=== PATIENT | male | born 1950 | race Caucasian/White ===

== ENCOUNTER 2016-05-20 17:05 | Observation (INO) | payer OTHER ==
[~2016-05-20] VITALS: Ht 188 cm; Wt 105.2 kg
[~2016-05-20 17:05] MED LIST: ACLI400A2 IH; ALBU8.5H2 INHALATION; ASPI-973 PO; ATOR40TA69 PO; Acetaminophen PO; CARV12.52 PO; CLOP75TA3 PO; DOCU-41 PO; ENOX40DI8 SUBQ; FRSM80T PO; Fentanyl TOPICAL; GABA-502 PO; LISI-571 PO; MAGN800O PO; OXYC5TAB72 PO; POLY17PO6 PO; POTA20TA16 PO; SPIR25TA3 PO; SYMINH INHALATION
[2016-05-20 18:29] VITALS: PULSE 92
--- NOTE | 2016-05-20 18:30 | NUR ---
transfer pt transfer from [facility] for chest pain pain is resolved, pt denies pain/distress vitals being taken, doc in room
[2016-05-20] MEDS ORDERED: Ondansetron 2 mg/mL 2 mL Inj IVPUSH PRN (18:35)
[2016-05-20] MEDS ORDERED: Polyethylene Glycol (PEG) 17 Gm Powder PO PRN (18:35)
[2016-05-20] MEDS: Sodium Chloride LOK Flush 10 mL Syringe IVFLUSH SCH ×2 (18:35→23:26)
[2016-05-20] MEDS ORDERED: Alum-Mag Hydrox-Simeth 30 mL Suspension PO PRN (18:35)
[2016-05-20 18:37] VITALS: BP 129/76; PULSE 40; RESP 16; O2SAT 96
--- NOTE | 2016-05-20 19:00 | PCM.HPMED ---
Subjective Date of Service May 20, 2016 Primary Provider: Admitting Physician: Siddharth Correia MD Primary Care Physician: Jamilah Allen MD Attending Physician: Siddharth Correia MD Admit Status: Direct Admit, Admit to [facility] Team, [facility] Telemetry Chief Complaint: Chest pain, resolved. History of Present Illness: Patient had sternal chest pain this AM for about an hour. Some associated diaphoresis. No nausea or acute dyspnea. Pain not pleuritic. He has known CAD with an MA 2 years ago, PCI with a OM stent. He has a known chronic systolic failure Last EF 17% He denies recent CP on exertion but recent increase in dyspnea on exertion. He was also very hypertensive this AM. He did have some right sided pleuritic CP. No increase in orthopnea, or leg edema. Review of Systems: All reviewed and otherwise unremarkable except as noted in H and P. Allergies Coded Allergies: No Known Allergies (Verified Allergy, Unknown, 06/04/15) Home Medications Unknown to patient, med rec pending. PMH 1. Severe chronic systolic HF, mixed cardiomyopathy with EF 17% 2. CAD with MA and OM stent. 3. NSVT with ICD + pacer 4. Obesity 5. HTN Surgical History ICD PCI with OM stent Left shoulder repair Hip fracture and ORIF Family History Strong FHx CHF Social History Hx Alcohol Use: Yes Hx Substance Use: No (denies) Smoking Status: Former Smoker Living Arrangement: with Family Exam Vital Signs Vital Sign - Last Date Time Temp Pulse Resp B/P Pulse Ox O2 Delivery O2 Flow Rate FiO2 05/20/16 18:37 36.7 40 16 129/76 96 Room Air Exam Alert and oriented x 3. No distress, fluent speech, normal affect Normal skull, nose and ears Normal neck, thyroid, no adenopathy Lungs clear, some exp wheezes Heart slow without murmur Abdomen distended, NT 1+ edema. Venous stasis derm Normal muscles and joints cranial nerves intact Anicteric sclera , conjugate gaze. Lab and Diagnostics Labs Pending 12-lead ECG Pending Assessment & Plan 1. Bradycardia, POA. D/W cardiology, ECG, [facility] 2nd floor, pt has a ICD + PAcer tested normal Feb 2016. 2. Chest pain, resolved. POA. Hold beta blockers, serial troponins, cards consult in AM. Possible stress test ([place]) 3. Obesity, POA 4. Chronic systolic HF, compensated. POA. Follow and resume meds when clinically able. Get med rec as well. Full code, discussed at time of admit Obs status, 1 night stay. May change clinically pending pacer check, tele and troponins. Pain Evaluation: Adequate Pain Control Resuscitation Status: CPR: Attempt Resuscitation Time spent 45 min Siddharth Correia MD May 20, 2016 19:00
[2016-05-20 20:00] VITALS: PULSE 102
[2016-05-20 20:19] VITALS: BP 108/52; PULSE 88; O2SAT 97
[2016-05-20 20:21] LABS: TROPONIN T < 0.010 ug/L (0.0-0.011)
--- NOTE | 2016-05-20 20:57 | NUR ---
Admission Pt up and about in the room independently. Ate 100% of his dinner. Denies chest pain. Oriented to room/call light Aware to report to nurse if any chest pain reoccurs. Treated with tylenol for a MCDONALD. Reports his MCDONALD is improved. Telemetry is trigeminal PVCs Sinus. Will cont to monitor
[2016-05-20] MEDS ORDERED: BECL8.7A5 INH (21:16)
[2016-05-20] MEDS ORDERED: FRSM80T PO (21:16)
[2016-05-21] VITALS (7 sets, daily range): BP systolic 118–147; BP diastolic 66–90; PULSE 69–90; RESP 16–18; O2SAT 96–98
[2016-05-21 06:19] LABS: BASOPHILS % (AUTO) 0.3 % (0-3); EOSINOPHILS % (AUTO) 1.8 % (0-5); MONOCYTES % (AUTO) 12.5 % (4-12); Mean Corpuscular Hemoglobin 31.8 pg (27.0-35.0); Mean Corpuscular Volume 97.4 fL (81-100); NEUTROPHILS % (AUTO) 70.5 % (40-74); Platelet Count 203 bil/L (150-400)
[2016-05-21 06:54] LABS: TROPONIN T < 0.010 ug/L (0.0-0.011)
[2016-05-21] MEDS: Sodium Chloride LOK Flush 10 mL Syringe IVFLUSH SCH ×2 (08:03→16:34)
--- NOTE | 2016-05-21 08:55 | PCM.PNMED ---
Subjective Date of Service May 21, 2016 Subjective Uneventful night.Patient had about 8 episodes of left sided chest pain yesterday lasting about a minute over half an hour now gone. Spoke with Dr. Jacob by phone about plan below. Med rec completed. Exam Vital Signs Vital Sign - Last Date Time Temp Pulse Resp B/P Pulse Ox O2 Delivery O2 Flow Rate FiO2 05/21/16 05:30 36.6 86 16 118/66 97 Room Air Intake and Output 05/20/16 05/20/16 05/21/16 Cumulative From/Thru 15:00 23:00 07:00 05/20/16 18:37 - 05/21/16 05:55 Intake Total 450 ml 450 ml Output Total 800 ml 800 ml Balance -350 ml -350 ml Intake Oral 450 ml 450 ml Output Urine Total 800 ml 800 ml # Bowel Movements 0 0 Exam Eyes; eliza, eom intact ENMT; well hydrated, no lesions CV; no murmur or gallop, regular Resp; clear to AP GI; soft non acute benign Skin; dry no rash Neuro; 2-12 intact no gross motor or sensory defect Lab and Diagnostics Result Diagram: 05/21/1645 05/20/161934 12-lead ECG Pending Assessment & Plan 1. Acute Bradycardia, POA, resolved -spoke with Dr. Jacob, he will set up pacemaker interogation -monitor on tele 2. Acute Chest pain, present on admission resolved. -trend troponins -lexiscan in AM, hold coreg -continue plavix, lipitor, asa 81, -repeat echo 3. Chronic systolic HF, compensated. POA. -ef 17% > year ago, repeat echo -creatinine up a bit, hold lasix and lisinopril today, check bmp in am 4. Acute Kidney injury, POA, active -patient may be a bit overdiuresed -hold lasix and augusto today and repeat BMP in AM 5. Chronic hypertension, POA, stable -monitor -continue coreg Disposition -pcp is Dr. Ferrer -cardiology rn is Dr. Nguyen Full code, discussed at time of admit Obs status, 1 night stay. May change clinically pending pacer check, tele and troponins. Resuscitation Status: CPR: Attempt Resuscitation Gideon Crenshaw MD May 21, 2016 08:55
[2016-05-21] MEDS ORDERED: Albuterol 2.5 mg/3 mL Inhalation Solution NEB PRN (09:06)
[2016-05-21 09:29] LABS: Magnesium 2.3 mg/dL (1.6-2.6)
--- NOTE | 2016-05-21 09:51 | NUR ---
interrogation this RN called [employer] @ [phone]-[phone] to get a rep out to do the interrogation. they are going to call when the have someone to do the service in our area. Addendum: 05/21/16 at 1019 by HENRI WHEELER RN Ronald will come to the hospital around [phone] today. phone number is [phone]
--- NOTE | 2016-05-21 11:42 | NUR ---
Ronald is here doing the procedure. He warns that pt's HR will be "a little messy" while he is adjusting the settings. neurology tech notified
--- NOTE | 2016-05-21 14:14 | NUR ---
Social Work: Screening Data: Pt is a 66 y/o male admitted for chest pain. Pt's PCP is Dr Allen, pt's insurance is [employer]. EMR reviewed, readmit score not listed. No d/c planning needs anticipated at this time. BORE MINER OPERATOR will continue to follow if needs arise. Assessment: Pt who is independent at baseline. Plan: Pt will d/c home via POV when medically stable. No d/c planning needs anticipated at this time. BORE MINER OPERATOR will continue to follow if needs arise. RASHARD Peters
[2016-05-21] MEDS: Fluticasone 100 mCg Inhaler INHALATION SCH (20:39)
[2016-05-22 00:44] VITALS: PULSE 83
[2016-05-22] MEDS: Sodium Chloride LOK Flush 10 mL Syringe IVFLUSH SCH ×2 (01:02→11:30)
[2016-05-22 01:24] VITALS: BP 137/71; PULSE 82; RESP 18; O2SAT 96
[2016-05-22 05:22] VITALS: BP 126/74; PULSE 78; RESP 18; O2SAT 96
--- NOTE | 2016-05-22 05:30 | NUR ---
Uneventful Night pt has been able to sleep during the shift with minimal interruptions. has denied pain. VSS, afebrile, on RA. IV is SL, patent when flushed. Reported PRN Tylenol has been effective for pain control and PRN Ambien has been effective for sleep. pt has been using call light appropriately to make needs known, placed within reach.
[2016-05-22 07:30] VITALS: PULSE 88
--- NOTE | 2016-05-22 07:36 | NUR ---
Off Unit: Patient transported to [facility] via wheelchair accompanied by transporter. broadband technician notified. No apparent distress at time of transport. Denies pain.
[2016-05-22 07:58] LABS: TROPONIN T < 0.010 ug/L (0.0-0.011)
[2016-05-22 10:39] VITALS: BP 117/83; PULSE 78; RESP 18; O2SAT 97
[2016-05-22] MEDS: Fluticasone 100 mCg Inhaler INHALATION SCH (11:29)
--- NOTE | 2016-05-22 11:46 | DRSVH ---
[facility] [address] [place] [address] Echocardiogram Report Name: HANANE BELL RStudy Date: 05/21/2016 Height: 74 in Hospital Exam Location: [facility] Weight: 232 lb Gender: Male BSA: 2.3 m2 : 1950 Age: 66 yrs BP: 118/66 mmHg Reason For Study: SOB, HYPERTENSION, CONGESTIVE HEART FAILURE Ordering Physician: HOSPITALIST ITZELerformed By: Guillermo Crane Referring Physician: Gideon SWAIN Interpretation Summary The left ventricle is moderate-severely dilated. The ejection fraction is estimated to be 25-30%. There is moderate to severe global hypokinesis of the left ventricle. There is a moderate dyssynchronous contraction pattern due to the paced rhythm. There is basal inferior wall akinesis. Compared with the prior echo from 01/26/2015, there is now a RV pacer lead seen and LV function is slightly improved. There is no significant valvular heart disease. No other echocardiographic abnormalities seen. Procedure: A two-dimensional transthoracic echocardiogram with color flow and Doppler was performed. The study quality was technically adequate. Comparison is made with the echocardiogram of 01/26/15. The patient was in begeminy for a good part of the exam. The heart rate ranged between 76-90 bpm during the study. Left Ventricle: The left ventricle is moderate-severely dilated. There is normal left ventricular wall thickness. The ejection fraction is estimated to be 25-30%. Compared with the prior echo from 01/26/2015, there is now a RV pacer lead seen and LV function is slightly improved. There is moderate to severe global hypokinesis of the left ventricle. There is a moderate dyssynchronous contraction pattern due to the paced rhythm. There is basal inferior wall akinesis. Right Ventricle: The right ventricle is mildly dilated. There is a pacemaker lead in the right ventricle. Right ventricular systolic function is mildly reduced. Atria: There is moderate biatrial enlargement. Mitral Valve: The mitral valve leaflets appear borderline thickened, but open well. There is trace mitral regurgitation. Aortic Valve: The aortic valve is grossly normal. There is mild aortic regurgitation. Tricuspid Valve: The tricuspid valve is not well visualized, but is grossly normal. Pulmonary artery pressures cannot be estimated because of the lack of a measurable TR jet velocity. Pulmonic Valve: The pulmonic valve leaflets are thin and pliable; valve motion is normal. There is mild pulmonic regurgitation. Great Vessels: The aortic root is normal size. The ascending aorta is mild- moderately enlarged. The pulmonary artery is normal size. The IVC is of normal diameter and collapses greater than 50% with a sniff. This suggests a low right atrial pressure of 3 mm Hg. Pericardium/ Pleura There is no pericardial effusion. There is no pleural effusion. MMode/2D Measurements & Calculations LVIDd: 6.8 cm RA long axis: 5.7 cm LVOT diam: 2.4 cm LVIDs: 5.7 cm LA A2 area: 19.5 cm AoV Opening FS: 16.6 % LA A4 area: 22.3 cm RA area: 25.1 cm EPSS: 2.4 cm LA length (vol) RA vol: 93.9 ml Ao root diam IVSd: 0.90 cm RA : 40.6 ml/m2 LVPWd: 1.0 cm LA vol: 67.1 ml asc Aorta Diam LA vol index Ao Arch Diam (Prox Trans): 2.6 cm IVC diam: 1.9 cm EDV(MOD-sp2) LV burnham. diameter/BSA LV sys. diameter/BSA RVD1 (basal) : 173.5 ml (cm/m^2): 2.9 (cm/m^2): 2.4 : 5.0 cm RVD2 (mid) TAPSE: 2.3 cm : 3.9 cm Doppler Measurements & Calculations Ao V2 max PA V2 max: 97.2 cm/sec Ao V2 mean LV V1 max PG : 142.5 cm/sec PA mean P.9 mmHg : 113.6 cm/sec Ao max PG Ao V2 VTI: 26.5 cmLV V1 VTI : 8.3 mmHg : 11.5 cm Ao mean PG LAQUITA(V,D): 2.0 cm2 LVOT Max Brett : 64.4 cm/sec LAQUITA(I,D): 2.0 cm sev ratio PA V2 mean LAQUITA indexed to BSA : 62.5 cm/sec (cm^2/m^2): 0.84 Reading Physician:05:22 PM
--- NOTE | 2016-05-22 12:32 | NUR ---
Telemetry: Notified by monitoring manager that patient had 5 beats V-Tach, bigeminal PVCs prior to tach and currently trigeminal PVC HR 108. Patient sitting in chair, denies feeling of palpitation, dizziness, lightheadedness. text paged.
--- NOTE | 2016-05-22 13:26 | NUR ---
Social Work: Discharge Data: Pt is on day 2 of hospitalization. EMR reviewed. D/C orders are in. No d/c planning needs identified at this time. MARINE STEAMFITTER will continue to follow if needs arise. Assessment: Pt who is independent at baseline. Plan: Pt will d/c home via POV today. No d/c planning needs identified at this time. MARINE STEAMFITTER will continue to follow if needs arise. RASHARD Peters
--- NOTE | 2016-05-22 13:27 | PCM.DIMED ---
Discharge Instructions Date of Service May 22, 2016 Dates of Hospitalization May 20, 2016 at 18:23 Discharge Diagnosis Discharge Diagnosis 1. Acute Bradycardia, poa, resolved 2. Acute Chest pain, present on admission resolved. 3. Chronic systolic HF, compensated. poa. 4. Acute Kidney injury, poa, resolved 5. Chronic hypertension, poa, stable Diet Low fat, Low Sodium, Heart Healthy Activity Limited until seen by PCP Call your provider Shortness of breath, Chest pain Patient Instructions Follow-up plan I would like you to follow up with your cardiologuist as soon as possible to review you hospital stay and make further recommendation Gideon Crenshaw MD May 22, 2016 13:27
--- NOTE | 2016-05-22 13:35 | PCM.DC.MED ---
Discharge Summary Date of Service May 22, 2016 Dates of Hospitalization Date of Hospital Admission May 20, 2016 at 18:23 Date of Discharge: May 22, 2016 Providers: Admitting Physician: Siddharth Correia MD Primary Care Physician: Jamilah Allen MD Attending Physician: Siddharth Correia MD Diagnosis at Time of Discharge Diagnosis at Time of Discharge 1. Acute Bradycardia, poa, resolved 2. Acute Chest pain, present on admission resolved. 3. Chronic systolic HF, compensated. poa. 4. Acute Kidney injury, poa, resolved 5. Chronic hypertension, poa, stable Procedures ECG 12 Lead Pending Cardiac Echo Impression Echocardiogram Report Name: HANANE BELL RStudy Date: 0 05/21/2016 Height: 74 in Hospital Exam Location: [facility] Weight: 232 lb Gender: Male BSA: 2.3 m2 : 1950 Age: 66 yrs BP: 118/66 mmHg Reason For Study: SOB, HYPERTENSION, CONGESTIVE HEART FAILURE Ordering Physician: HOSPITALIST SVHPerformed By: Guillermo Crane Referring Physician: Gideon SWAIN Interpretation Summary The left ventricle is moderate-severely dilated. The ejection fraction is estimated to be 25-30%. There is moderate to severe global hypokinesis of the left ventricle. There is a moderate dyssynchronous contraction pattern due to the paced rhythm. There is basal inferior wall akinesis. Compared with the prior echo from 01/26/2015, there is now a RV pacer lead seen and LV function is slightly improved. There is no significant valvular heart disease. No other echocardiographic abnormalities seen. Brief History Patient had sternal chest pain this AM for about an hour. Some associated diaphoresis. No nausea or acute dyspnea. Pain not pleuritic. He has known CAD with an VA 2 years ago, PCI with a OM stent. He has a known chronic systolic failure Last EF 17% He denies recent CP on exertion but recent increase in dyspnea on exertion. He was also very hypertensive this AM. He did have some right sided pleuritic CP. No increase in orthopnea, or leg edema. Hospital Course 1. Acute Bradycardia, POA, resolved -reported bradycardia from [facility], not noted here and not noted on pacemaker interrogation 2. Acute Chest pain, present on admission resolved. -trended troponins all negative -lexiscan low risk, increased fixed perfusion defects, no reversible component, -continue plavix, lipitor, asa 81, coreg -discharge home today, no futher CP in hospital, followup with moulder operator SHERIF -discussed with Cecil Dowd 3. Chronic systolic HF, compensated. POA. -ef 17% > year ago, repeat echo now with ef 25-30% -continue same lasix and lisinopril 4. Acute Kidney injury, POA, active -patient may be a bit overdiuresed -creatinine now normal, 0.85 5. Chronic hypertension, POA, stable -monitor -continue coreg, lasix Disposition -pcp is Dr. Ferrer -moulder operator is Dr. Nguyen Full code, discussed at time of admit Obs status, 1 night stay. May change clinically pending pacer check, tele and troponins. Exam Vital Signs (Last) Date Time Temp Pulse Resp B/P Pulse Ox O2 Delivery O2 Flow Rate FiO2 05/22/16 10:39 37.1 78 18 117/83 97 Room Air Exam Eyes; eliza, eom intact ENMT; well hydrated, no lesions CV; no murmur or gallop, regular, minimal edema Resp; clear to AP GI; soft non acute benign Skin; dry no rash Neuro; 2-12 intact no gross motor or sensory defect Test 05/20/16 19:35 05/21/16 05:45 05/22/16 05:02 Total Bilirubin 0.5mg/dL (0.0-1.2) Aspartate Amino Transf (AST/SGOT) 20U/L (0-50) Alanine Aminotransferase (ALT/SGPT) 29U/L (0-44) Alkaline Phosphatase 81U/L (25-160) Total Protein 8.0g/dL (6.4-8.4) Albumin 4.6g/dL (3.4-5.0) Hold Yang Top Tube Received (Received) White Blood Count 10.9th/mm3 (3.8-10.1) Red Blood Count 4.18mil/mm3 (4.40-5.80) Hemoglobin 13.3g/dL (13.8-17.2) Hematocrit 40.7% (41.0-50.0) Mean Corpuscular Volume 97.4fL (81-100) Mean Corpuscular Hemoglobin 31.8pg (27.0-35.0) Mean Corpuscular Hemoglobin Concent 32.7% (32.0-37.0) Red Cell Distribution Width 12.8% (12.3-15.4) Platelet Count 203bil/L (150-400) Neutrophils (%) (Auto) 70.5% (40-74) Lymphocytes (%) (Auto) 14.7% (14-46) Monocytes (%) (Auto) 12.5% (4-12) Eosinophils (%) (Auto) 1.8% (0-5) Basophils (%) (Auto) 0.3% (0-3) Magnesium Level 2.3mg/dL (1.6-2.6) Triglycerides Level 132mg/dL (0-149) Cholesterol Level 131mg/dL (100-199) LDL Cholesterol, Calculated 60.600mg/dL (0-99) VLDL Cholesterol 26.400mg/dL HDL Cholesterol 44mg/dL (>39) Cholesterol/HDL Ratio 2.98 (0.0-4.4) Thyroid Stimulating Hormone (TSH) 0.439uIU/mL (0.450-4.500) Sodium Level 140mEq/L (134-144) Potassium Level 4.8mEq/L (3.5-5.2) Chloride Level 103mEq/L (97-108) Carbon Dioxide Level 20mmol/L (18-29) Blood Urea Nitrogen 15mg/dL (8-27) Creatinine 0.85mg/dL (0.76-1.27) Estimat Glomerular Filtration Rate 96mL/min (>59) Glucose Level 109mg/dL (60-99) Calcium Level 9.4mg/dL (8.5-10.1) Troponin T < 0.010ug/L (0.0-0.011) Discharge Medications Discharge Medications Aspirin (Aspirin) 81 Mg Tablet 81 MG PO DAILY (Reported) Atorvastatin Calcium (Atorvastatin Calcium) 40 Mg Tablet 40 MG PO DAILY ( Reported) Beclomethasone Dipropionate (Qvar) 8.7 Gm Aer.w.adap 2 PUFFS INH BID (Reported) Carvedilol (Carvedilol) 12.5 Mg Tablet 18.75 MG PO BID (Reported) Clopidogrel Bisulfate (Plavix) 75 Mg Tablet 75 MG PO DAILY (Reported) Furosemide (Furosemide) 80 Mg Tab 80 MG PO every other day (Reported) Furosemide (Furosemide) 80 Mg Tab 40 MG PO every other day (Reported) Lisinopril (Lisinopril) 5 Mg Tablet 5 MG PO DAILY (Reported) Potassium Chloride (Potassium Chloride) 20 Meq Tab.er.prt 20 MEQ PO DAILY ( Reported) TAKE WITH FOOD Spironolactone (Spironolactone) 25 Mg Tablet 12.5 MG PO DAILY (Reported) As needed Albuterol HFA (Proair HFA) 8.5 Gm Hfa.aer.ad 2 PUFFS INHALATION Q4H PRN PRN For Shortness of Breath (Reported) Followup Plan Follow-up plan I would like you to follow up with your cardiologuist as soon as possible to review you hospital stay and make further recommendation Discharge Diet: Low fat, Low Sodium, Heart Healthy Discharge Activity: Limited until seen by PCP Time spent 40 minutes time spent discharging patient home, current time is 1:36 pm copies to: Gary Ferrer MD; Mara Nguyen MD, D Geoffrey MD May 22, 2016 13:35
--- NOTE | 2016-05-22 15:36 | NUR ---
Discharge: Patient discharged to home @ approx 1530. IV d/c'd intact, telemetry removed, playground monitor notified. Personal belongings sent home with patient. Reviewed home medications, d/c instructions, and follow up appointments. Verbalized understanding. Ambulated to main entrance accompanied by DEDICATED INTERMODAL TRUCK DRIVER and friend.
--- NOTE | 2016-05-22 15:59 | DRSVH ---
PROCEDURE: ONE DAY TREADMILL STRESS TEST. Rest and exercise myocardial perfusion SPECT; gated image s not acquired. RADIOPHARMACEUTICAL: 8.4 mCi of Tc-99m tetrofosmin IV at rest and 2.62 mCi of Tc-99m tetrofosmin IV at peak exercise. Wbc-you-htxnblya was performed. INDICATIONS: CHEST PAIN TECHNIQUE: Radiopharmaceutical was injected at peak stress test, and also at rest. SPECT images wer e obtained. SPECT myocardial perfusion images were displayed in short axis, horizontal long axis, an d vertical long axis views. Images were reviewed using [employer] software. COMPARISON: None. CARDIAC STRESS: A standard [place] treadmill exercise tolerance test was performed by the patient und er the supervision of attending staff. The patient exercised for 2 minutes and 50 seconds; functiona l aerobic impairment (JOSELYN) was +50%. Hemodynamic Data: There was a hypertensive blood pressure response. Resting blood pressure 122/62 a nd stress blood pressure 200/80 mmHg. The patient achieved 97% of target heart rate. Symptoms: The patient had dyspnea during the exercise stress test. EKG: Baseline rhythm was sinus and had frequent PVCs as well as ventricular couplets. Mostly they w ere monomorphic, however, polymorphic PVCs were seen as well. During exercise, the PVCs did not get worse, however, reappeared during recovery. A 3-beat run of polymorphic nonsustained ventricular tac hycardia was seen as well during recovery. FINDINGS: Raw Data: There was increased subdiaphragmatic activity. Left Ventricular Function: Gated images could not be performed. Myocardial Perfusion: Stress supine, resting supine and stress prone images were compared to each ot her. It appears that the patient has a predominantly-fixed, large-size, moderately-severe perfusion defect of the inferior wall, inferoapex, and mid to distal inferolateral wall. I do not see any sign ificant reversible ischemia. IMPRESSION: The patient has a predominantly-fixed, large-size, moderately-severe perfusion defect of the inferior wall and inferoapex as well as base to mid inferolateral wall, consistent with old infa rction. The patient had a perfusion study in October of 2014. At that time, according to the repo rt, there was moderately decreased perfusion of the inferior wall. In this study, I am seeing a mid to distal inferolateral wall defect as well. There is no significant perfusion defect in the left an terior descending territory. The patient has a history of an obtuse marginal branch stent in 2014. At that time, the right coronary artery did not have any significant disease. There is a possibility of occlusion of the obtuse marginal branch. Clinical correlation is recommended. I discussed the f indings with the hospitalist team. Dictated by: Mara Nguyen M.D. on 05/22/2016 at 11:44 Transcribed by: SERG on 05/22/2016 at 18:58 Approved by: Mara Nguyen M.D. on 05/22/2016 at 18:07
== END 2016-05-22 15:37 | disposition home or self-care (01) ==
LOC: MPC 18:23
PROVIDERS: ADMIT Hospitalist; ATTEND Hospitalist
DX: R00.1 Bradycardia, unspecified (principal); R07.9 Chest pain, unspecified; I50.22 Chronic systolic (congestive) heart failure; N17.9 Acute kidney failure, unspecified; I10 Essential (primary) hypertension; I25.10 Atherosclerotic heart disease of native coronary artery without angina pectoris; J44.9 Chronic obstructive pulmonary disease, unspecified; I42.0 Dilated cardiomyopathy; I25.2 Old myocardial infarction; E66.9 Obesity, unspecified; Z87.891 Personal history of nicotine dependence; Z95.5 Presence of coronary angioplasty implant and graft; Z68.29 Body mass index [BMI] 29.0-29.9, adult; Z79.82 Long term (current) use of aspirin; Z79.02 Long term (current) use of antithrombotics/antiplatelets; Z95.810 Presence of automatic (implantable) cardiac defibrillator; Z72.89 Other problems related to lifestyle
CPT/HCPCS: 36415; 78452; 80048; 80053; 80061; 83735; 84443; 84484; 85025; 93017; A9502; C8929; G0378; G0379